=== PATIENT | female | born 1990 | race Caucasian/White ===

== ENCOUNTER 2017-06-24 16:54 | Emergency (ER) | payer BC, OTHER ==
[2017-06-24 17:14] VITALS: BP 114/65; PULSE 80; TEMP 98.2; BMI 29.2
--- NOTE | 2017-06-24 17:14 | PDOC ---
Rapid Medical Evaluation Time Seen by Provider: 06/24/17 17:06 Medical Evaluation: Allergies Allergy/AdvReac Type Severity Reaction Status Date / Time No Known Allergies Allergy Verified 06/24/17 17:09 06/24/17 17:09 I have performed a brief in-person evaluation of this patient. The patient presents with a chief complaint of: , ~7 weeks w/ +IUP on US per pt, f/u Dr To of BOB[facility] DRIER at [facility], sent in for rhogam. Pt states she developed vaginal spotting last week that has since resolved. No abd pain. Was seen in [facility] [place] in [place] 3 days ago and told blood type was O- but refused rhogam as was unhappy with care. Was sent here by her BOB[facility] DRIER per pt Pertinent physical exam findings:Stable w/ unremarkable exam I have ordered the following:T&S The patient will proceed to the ED for further evaluation.
[2017-06-24] MEDS ORDERED: RHO(D) IMMUNE GLOBULIN 1,500 UNIT DISP.SYRIN IM ONE (19:23)
--- NOTE | 2017-06-24 19:28 | PDOC ---
History of Present Illness - General Chief Complaint: ,Possible Stated Complaint: PCP SENT Time Seen by Provider: 06/24/17 17:06 History Source: Patient Exam Limitations: No Limitations - History of Present Illness Initial Comments: 06/24/17 19:28 Patient is a 27-year-old female G2, P1 who presents to emergency department today stating that she needs Rhogam. Patient states that she had some light vaginal spotting approximately 1 week ago. The spotting has since stopped. When she had the spotting she had a transvaginal ultrasound which confirmed an IUP. She was sent over by her AUDIT OFFICER Dr. Gale because she is O- on her type and screen. She has no complaints at this time. Denies vaginal bleeding, abdominal plain, frequency, urgency and hematuria. Past History - Travel Traveled outside of the country in the last 30 days: No Close contact w/someone who was outside of country & ill: No - Past Medical History Allergies/Adverse Reactions: Allergies Allergy/AdvReac Type Severity Reaction Status Date / Time No Known Allergies Allergy Verified 06/24/17 17:09 Home Medications: Ambulatory Orders NK [No Known Home Medication] 06/24/17 COPD: No DVT: No Dementia: No - Immunization History Immunization Up to Date: Yes - Suicide/Smoking/Psychosocial Hx Smoking History: Never smoked Have you smoked in the past 12 months: No Hx Alcohol Use: No Drug/Substance Use Hx: No Substance Use Type: None Review of Systems - Review of Systems Able to Perform ROS?: Yes Comments:: 06/24/17 19:30 CONSTITUTIONAL: Absent: fever, chills, diaphoresis, generalized weakness, malaise, loss of appetite HEENT: Absent: rhinorrhea, nasal congestion, throat pain, throat swelling, difficulty swallowing, mouth swelling, ear pain, eye pain, visual Changes CARDIOVASCULAR: Absent: chest pain, loss of consciousness, palpitations, irregular heart rate, peripheral edema RESPIRATORY: Absent: cough, shortness of breath, dyspnea with exertion, orthopnea, wheezing, stridor, hemoptysis GASTROINTESTINAL: Absent: abdominal pain, abdominal distension, nausea, vomiting, diarrhea, constipation, melena, hematochezia GENITOURINARY: Absent: dysuria, frequency, urgency, hesitancy, hematuria, flank pain, genital pain MUSCULOSKELETAL: Absent: myalgia, arthralgia, joint swelling SKIN: Absent: rash, itching, pallor HEMATOLOGIC/IMMUNOLOGIC: Present: "I need Rhogam" Absent: easy bleeding, easy bruising, lymphadenopathy, frequent infections ENDOCRINE: Absent: unexplained weight gain, unexplained weight loss, heat intolerance, cold intolerance NEUROLOGIC: Absent: headache, focal weakness or paresthesias, dizziness, unsteady gait, seizure, mental status changes, bladder or bowel incontinence PSYCHIATRIC: Absent: anxiety, depression, suicidal or homicidal ideation, hallucinations. Is the patient limited Swedish proficient: No *Physical Exam - Vital Signs Last Vital Signs Temp Pulse Resp BP Pulse Ox 98.2 F 80 15 114/65 100 06/24/17 17:11 06/24/17 17:11 06/24/17 17:11 06/24/17 17:11 06/24/17 17:11 - Physical Exam Comments: 06/24/17 19:31 GENERAL: Well developed, well nourished. Awake and alert. No acute distress. HEENT: Normocephalic, atraumatic. PERRLA, EOMI. No conjunctival pallor. Sclera are non- icteric. Moist mucous membranes. Oropharynx is clear. NECK: Supple. Full ROM. No JVD. Carotid pulses 2+ and symmetric, without bruits. No thyromegaly. No lymphadenopathy. CARDIOVASCULAR: Regular rate and rhythm. No murmurs, rubs, or gallops. Distal pulses are 2+ and symmetric. PULMONARY: No evidence of respiratory distress. Lungs clear to auscultation bilaterally. No wheezing, rales or rhonchi. ABDOMINAL: Soft. Non-tender. Non-distended. No rebound or guarding. No organomegaly. Normoactive bowel sounds. MUSCULOSKELETAL Normal range of motion at all joints. No bony deformities or tenderness. No CVA tenderness. EXTREMITIES: No cyanosis. No clubbing. No edema. No calf tenderness. SKIN: Warm and dry. Normal capillary refill. No rashes. No jaundice. NEUROLOGICAL: Alert, awake, appropriate. Cranial nerves 2-12 intact. No deficits to light touch and temperature in face, upper extremities and lower extremities. No motor deficits in the in face, upper extremities and lower extremities. Normoreflexic in the upper and lower extremities. Normal speech. Toes are down- going bilaterally. Gait is normal without ataxia. PSYCHIATRIC: Cooperative. Good eye contact. Appropriate mood and affect. ED Treatment Course - ADDITIONAL ORDERS Additional order review: Laboratory Results 06/24/17 06/24/17 17:20 17:20 Blood Type O NEGATIVE O NEGATIVE Antibody Screen Negative Negative Medical Decision Making - Medical Decision Making 06/24/17 19:31 Patient is a 27-year-old female G2, P1 approximately 7 weeks who presents emergency department today needing rhogam and after vaginal spotting last week. She has no complaints at this time. States that she has not had any vaginal bleeding since last week. Type and screen shows O- with negative antibodies. We will give rhogam and at this time. Patient given return precautions. Patient understands all discharge instructions and all questions were answered. Patient was informed keep her follow-up for 07/05/[address] Gale. *DC/Admit/Observation/Transfer Diagnosis at time of Disposition: Need for rhogam due to Rh negative mother - Discharge Dispostion Disposition: HOME Condition at time of disposition: Stable Admit: No - Referrals Referrals: Myrna Rucker [Primary Care Provider] - Carolin Gale MD [Staff Physician] - - Patient Instructions Printed Discharge Instructions: DI for Vaginal Bleeding During Additional Instructions: You were given Rhogam today. Please keep your follow-up with her AUDIT OFFICER for . Drink plenty of fluids. Return to the emergency department if you have vaginal bleeding, abdominal pain , worsening nausea and vomiting, weakness, lethargy or have any changes in your symptoms. - Post Discharge Activity Forms/Work/School Notes: Back to Work
== END 2017-06-24 20:26 | disposition home or self-care (01) ==
LOC: JERFT 16:54 → JER 16:54
PROC: 3E0234Z Introduction of Serum, Toxoid and Vaccine into Muscle, Percutaneous Approach (ICD-10-PCS; principal; 2017-06-24)
DX: O36.0110 Maternal care for anti-D [Rh] antibodies, first trimester, not applicable or unspecified (principal); Z3A.01 Less than 8 weeks gestation of pregnancy
CPT/HCPCS: 86850; 86900; 86901; 86999; 99281-25; J1561

== ENCOUNTER 2017-07-13 12:27 | Day surgery (SDC) | payer BC, OTHER ==
[2017-07-12 15:35] VITALS: BMI 29.2
[2017-07-13 13:00] LABS: BASO % 0.5 % (0-2.0); HEMATOCRIT 39.4 % (32.4-45.2); HEMOGLOBIN 13.3 GM/dL (10.7-15.3); LYMPH % 22.8 % (8-40); MCHC 33.8 g/dl (32.0-36.0); MEAN CELL VOLUME 85.8 fl (80-96); MONO % 7.1 % (3.8-10.2); NEUT % 68.6 % (42.8-82.8); PLATELET COUNT 208 K/MM3 (134-434); RBC 4.59 M/mm3 (3.60-5.2); RDW 13.4 % (11.6-15.6)
[2017-07-13] MEDS ORDERED: IBUPROFEN 400 MG TABLET (FP) PO PRN (13:42)
[2017-07-13] MEDS ORDERED: ACETAMINOPHEN 325 MG TABLET (FP) PO PRN (13:42)
[2017-07-13] MEDS ORDERED: oxyCODONE HCL 5 MG TABLET PO PRN (13:42)
--- NOTE | 2017-07-13 13:46 | HP ---
Admitting History and Physical - Admission History of Present Illness: 27 yo @ approximtealy 8 wks by dates found to have missed She is s/p ultrasound that measured her to be 6 wks without FH on two occasions Her ultasound was also significant for a bicornuate v arcuate uterus. She denies complaints, reports no leakage of fluid or vaginal bleeding History Source: Patient Limitations to Obtaining History: No Limitations - Past Medical History Cardiovascular: No: HTN Pulmonary: No: Asthma ...LMP: 05/11/17 ...: Yes (misscarriage) ...: 2 ...Para: 1 - Past Surgical History Past Surgical History: Yes: - Smoking History Smoking history: Never smoked Have you smoked in the past 12 months: No - Alcohol/Substance Use Hx Alcohol Use: No - Social History History of Recent Travel: No Home Medications - Allergies Allergies/Adverse Reactions: Allergies Allergy/AdvReac Type Severity Reaction Status Date / Time No Known Allergies Allergy Verified 07/13/17 13:26 - Home Medications Home Medications: Ambulatory Orders NK [No Known Home Medication] 06/24/17 Family Disease History - Family Disease History Family History: Denies Review of Systems - Review of Systems Constitutional: reports: No Symptoms Cardiovascular: reports: No Symptoms Respiratory: reports: No Symptoms Gastrointestinal: reports: No Symptoms Genitourinary: reports: No Symptoms Musculoskeletal: reports: No Symptoms Endocrine: reports: No Symptoms Hematology/Lymphatic: reports: No Symptoms Physical Examination Vital Signs: Vital Signs Temperature 98.5 F 07/13/17 13:23 Pulse Rate 83 07/13/17 13:23 Respiratory Rate 16 07/13/17 13:23 Blood Pressure 96/59 07/13/17 13:23 O2 Sat by Pulse Oximetry (%) 100 07/13/17 13:25 Constitutional: Yes: Well Nourished, No Distress, Calm Cardiovascular: Yes: Regular Rate and Rhythm Respiratory: Yes: Regular, CTA Bilaterally Gastrointestinal: Yes: Normal Bowel Sounds, Soft Neurological: Yes: Alert, Oriented ...Motor Strength: WNL Psychiatric: Yes: Alert, Oriented Labs: CBC, BMP 07/13/17 12:15 Blood type: O negative, Rh positive, s/p rhogam Assessment/Plan 27 yo MAB 1. Consents reviewed and signed. Reviewed risks including but not limited to infection, bleeding requiring transfusion, uterine perforation, damage to surrounding organs such as bowel and bladder. 2. Plan for ultrasound during provedure 3. Plan for doxycycline and methergine postop 4. SCDs for DVT prophylais 5. Will proceed to OR
[2017-07-13] MEDS ORDERED: PROPOFOL 20 ML ONE ×4 (14:17→14:50)
[2017-07-13] MEDS ORDERED: ceFAZolin SODIUM 1 GM VIAL IVPB ONE (14:21)
[2017-07-13] MEDS ORDERED: ceFAZolin SODIUM 1 GM VIAL ONE (14:24)
[2017-07-13] MEDS ORDERED: KETOROLAC TROMETHAMINE 30 MG/1 ML VIAL ONE (14:37)
[2017-07-13] MEDS ORDERED: ONDANSETRON 4 MG/2 ML VIAL IVPUSH PRN (15:16)
[2017-07-13] MEDS ORDERED: LACTATED RINGERS SOLUTION 1,000 ML IV SCH (15:30)
--- NOTE | 2017-07-13 16:10 | OP ---
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
[2017-07-13 18:32] VITALS: TEMP 97.8
[2017-07-13 18:44] VITALS: BP 110/60; PULSE 86
--- NOTE | 2017-07-14 07:48 | OP ---
DATE OF OPERATION: 07/13/2017 ATTENDING PHYSICIAN RESPONSIBLE TO SIGN REPORT: Carolin Gale MD PREOPERATIVE DIAGNOSIS: Missed . POSTOPERATIVE DIAGNOSIS: Missed . SURGERY: Ultrasound-guided suction dilation and curettage. FINDINGS: Likely bicornuate uterus with in the left horn. No FH noted on ultrasound prior to procedure. Thin endometrial stripe at the end of procedure. SURGEON: Carolin Gale MD ANESTHESIA: General. ANESTHESIOLOGIST: Joseph Ambrocio DO ESTIMATED BLOOD LOSS: 100 mL. INDICATIONS: Patient is a 27-year-old 2, para 1, with history of missed AB diagnosed on ultrasound. She was approximately 9 weeks measuring about 6 weeks on the ultrasound, 7 weeks bedside today. No FH noted. She was counseled regarding medical or surgical management. She opted for surgical procedure. She was counseled regarding risks, benefits, alternatives, and complications of the procedure including infection, bleeding, uterine perforation, damage to surrounding organs such as bowel, bladder. She expressed understanding and was brought to the operating room. DESCRIPTION OF PROCEDURE: When anesthesia was found to be adequate, patient was prepped and draped in a normal sterile fashion, placed in dorsal lithotomy position using Rufino stirrups. A weighted speculum was placed in the posterior portion of the patients vagina. The extensor protractor was placed in the anterior portion of the patients anterior vagina. The anterior lip of the cervix was grasped using a single-tooth tenaculum. The cervix was dilated to accommodate a size 20 Aajy dilator. Ultrasound guidance was performed, and insertion of the cannula deemed to be difficult as it was likely she had a uterine septum. Ultrasound was used to place the cannula into the left uterine horn. Gentle suction was performed. Removal of all products was noted on ultrasound. All instruments were removed from the patients vagina. The patient tolerated the procedure well. Estimated blood loss was 100 mL. Patient was awoken from anesthesia and brought to the recovery room in stable condition. Mikayla [id number] MTDD
--- NOTE | 2017-07-15 15:36 | PATH ---
Surgical Pathology Report Patient Name: RORY LAURA Med. Rec. #: [id number] /Age/Gender: 1990 (Age: 27) / F Account: [id number] Location: [facility] SURGICAL Taken: 07/13/2017 Received: 07/14/2017 Reported: 07/15/2017 Physicians: Carolin Gale Specimen(s) Received PRODUCTS OF CONCEPTION Clinical History Miscarriage Final Diagnosis UTERINE CONTENTS, EVACUATION: CHORIONIC VILLI CONSISTENT WITH PRODUCTS OF CONCEPTION, AND PORTIONS OF DECIDUA. Electronically Signed Jeff Hardy M.D. Gross Description Received in formalin, labeled "products of conception," is a 8 x 5 x 1 cm. aggregate of fortune-red soft tissue fragments. Villous tissue is identified. No somatic tissue is identified. A community health representative portion is submitted in one cassette. LUCITA/07/14/2017 tia/07/14/2017
== END 2017-07-13 18:48 | disposition home or self-care (01) ==
LOC: JASU-SURG 12:27
PROVIDERS: ATTEND Obstetrics & Gynecology
PROC: 10D17ZZ Extraction of Products of Conception, Retained, Via Natural or Artificial Opening (ICD-10-PCS; principal; 2017-07-13 14:00)
DX: O02.1 Missed abortion (principal)
CPT/HCPCS: 36415; 76856-TC; 76998-TC; 85025; 86850; 86870; 86900; 86901; 86902; 88305-TC; 94760

== ENCOUNTER 2019-01-04 16:00 | Inpatient (IN) | payer BC, OTHER ==
[2019-01-04] MEDS ORDERED: CITRIC ACID/SODIUM CITRATE 30 ML UNIT-DOSE CUP PO ONE (16:45)
[2019-01-04] MEDS ORDERED: ELECTROLYTE-148 SOLN 1,000 ML IV ONE (16:45)
[2019-01-04] MEDS ORDERED: ELECTROLYTE-148 SOLN 1,000 ML IV SCH ×2 (17:45→19:30)
[2019-01-04 18:05] VITALS: BMI 32.5
[2019-01-04] MEDS ORDERED: ONDANSETRON 4 MG/2 ML VIAL IVPUSH PRN (18:56)
[2019-01-04] MEDS ORDERED: KETOROLAC TROMETHAMINE 30 MG/1 ML VIAL ONE ×2 (19:05→19:11)
[2019-01-04] MEDS ORDERED: ceFAZolin SODIUM 1 GM VIAL ONE (19:13)
[2019-01-04] MEDS ORDERED: OXYTOCIN 10 UNITS/ML VIAL ONE (19:16)
[2019-01-04] MEDS ORDERED: OXYTOCIN 20 UNITS in 0.9% NS 20 UNIT/1,000 ML INFUS.BAG IV ONE ×2 (19:31→22:12)
[2019-01-04] MEDS ORDERED: ePHEDrine SULFATE 50 MG/1 ML AMPULE ONE (19:34)
[2019-01-04] MEDS ORDERED: PHENYLEPHRINE HCL 10 MG/1 ML SINGLE DOSE VIAL ONE (19:34)
--- NOTE | 2019-01-04 19:34 | HP ---
Past Medical History - Primary Care Physician PCP:: Yao Martinez - Admission Chief Complaint: 28yo P1 with at EGA 37w0d admitted for repeat C/S due to IUGR. History of Present Illness: care complicated by suspected IUGR. Bicornuate uterus Rh negative Prior C/S History Source: Patient, Medical Record Limitations to Obtaining History: No Limitations - Past Medical History SECURITY ASSURANCE SPECIALIST: No: Alzheimer's, CVA, Dementia, Migraine, Multiple Sclerosis, Peripheral Neuropathy, Parkinson's, Seizure, Syncope, TIA, Vertigo, Other Cardiovascular: No: AFIB, Aneurysm, Aortic Insufficiency, Aortic Stenosis, CAD, CHF, Deep Vein Thrombosis, HTN, Hyperlipdemia, AR, Mitral Insufficiency, Mitral Stenosis, Murmur, Pulmonary Hypertension, Other Pulmonary: No: Asthma, Bronchitis, Cancer, COPD, O2 Dependent, Pneumonia, Previously Intubated, Pulmonary Embolus, Pulmonary Fibrosis, Sleep Apnea, Other Gastrointestinal: No: Ascites, Cancer, Constipation, Crohn's Disease, Diverticulitis, Diverticulosis, Esophageal Varices, Gastritis, GERD, GI Bleed, Hemorrhoids, Hiatal Hernia, Inflamatory Bowel Disease, Irritable Bowel Disease, Pancreatitis, Peptic Ulcer Disease, Ulcerative Colitis, Other Hepatobiliary: No: Cirrhosis, Cholelithiasis, Cholecystitis, Choledocholithiasis , Hepatitis A, Hepatitis B, Hepatitis C, Other Renal/: No: Renal Failure, Renal Inusuff, BPH, Cancer, Hematuria, Hemodialysis , Neurogenic Bladder, Renal Calculi, UTI, Other Reproductive: No: Ectopic , Endometriosis, Fibroids, PID, Polycystic Ovary Syndrome, Postmenopausal, Other ...: 3 ...Para: 1 ...Term: 1 ...: 0 ...Spon : 1 ...Induced : 0 ...Multiple Gestation: 0 ...LMP: 04/20/18 ... Weeks Gestation by Dates: 37.0 (C/S x 1) ...EDC by Dates: 01/25/19 Heme/Onc: No: Anemia, B12 Deficiency, Bleeding Disorder, Cancer, Current Chemotherapy, Current Radiation Therapy, Hemochromatosis, Hypercoaguable State, Myeloproliferative Synd, Sickle Cell Disease, Sickle Cell Trait, Thrombocytopenia, Other Infectious Disease: No: AIDS, C-Diff, Herpes Zoster, HIV, MRSA, STD's, Tuberculosis, VREF, Other Psych: No: Addictions, Anxiety, Bipolar, Depression, Panic, Psychosis, Schizophrenia, Other Musculoskeletal: No: Bursitis, Chronic low back pain, Hemiparesis, Hemiplegia, Osteoarthritis, Paraplegia, Other Rheumatology: No: Fibromyalgia, Gout, Lupus, Rheumatoid Arthritis, Sarcoidosis, Vasculitis, Other ENT: No: Allergic Rhinitis, Sinusitis, Other Endocrine: No: Reeves's Disease, [place]'s Disease, Diabetes Insipidus, Diabetes Mellitus, Hyperparathyroidism, Hyperthyroidism, Hypothyroidism, Osteopenia, SIADH, Other Dermatology: No: Basal Cell, Cellulitis, Eczema, Melanoma, Psoriasis, Squamous Cell, Other - Past Surgical History Past Surgical History: Yes: Hx Myomectomy: No Hx Transabdominal Cerclage: No - Smoking History Smoking history: Never smoked Have you smoked in the past 12 months: No - Alcohol/Substance Use Hx Alcohol Use: No History of Substance Use: reports: None - Social History Usual Living Arrangement: Yes: With Spouse, With Child ADL: Independent History of Recent Travel: No Home Medications - Allergies Allergies/Adverse Reactions: Allergies Allergy/AdvReac Type Severity Reaction Status Date / Time No Known Allergies Allergy Verified 01/04/19 18:31 - Home Medications Home Medications: Ambulatory Orders Vit No.129/Iron/Folic [ One Daily Tablet] 1 each PO DAILY 10/09 Family Medical History Family History: Unremarkable Review of Systems - Review of Systems Constitutional: reports: No Symptoms Eyes: reports: No Symptoms HENT: reports: No Symptoms Neck: reports: No Symptoms Cardiovascular: reports: No Symptoms Respiratory: reports: No Symptoms Gastrointestinal: reports: No Symptoms Genitourinary: reports: No Symptoms Breasts: reports: No Symptoms Reported Musculoskeletal: reports: No Symptoms Integumentary: reports: No Symptoms Neurological: reports: No Symptoms Endocrine: reports: No Symptoms Hematology/Lymphatic: reports: No Symptoms Psychiatric: reports: No Symptoms Pain Intensity: 0 Physical Exam - Maternity Vital Signs: Vital Signs Temperature 99.0 F 01/04/19 17:15 Pulse Rate 99 H 01/04/19 17:15 Respiratory Rate 18 01/04/19 17:15 Blood Pressure 107/63 01/04/19 17:15 O2 Sat by Pulse Oximetry (%) Constitutional: Yes: Well Nourished, No Distress, Calm Eyes: Yes: WNL, Conjunctiva Clear HENT: Yes: WNL, Atraumatic, Normocephalic Neck: Yes: WNL, Supple, Trachea Midline Cardiovascular: Yes: WNL, Regular Rate and Rhythm Lungs: Clear to auscultation, Normal air movement - Abdominal Exam/OB Fundal Height: 37 Number of Fetuses: Single Presentation: Vertex Contractions: No Heart Rate (range): 130 Heart Rate Location: Midline Category: I Accelerations: Non-Uniform Decelerations: None - Vaginal Exam/OB Vaginal Bleediing: No Speculum Exam: No Amniotic Membrane Status: Intact Presentation: Vertex/Position Station: -4 - Physical Exam Musculoskeletal: Yes: WNL Extremities: Yes: WNL Edema: No Integumentary: Yes: WNL Deep Tendon Reflex Grade: Normal +2 ...Motor Strength: WNL Psychiatric: Yes: WNL, Alert, Oriented Hemorrhage Risk Assessment - Risk Factors Medium Risk Factors: Yes: Prior , uterine surgery,or multiple laparotomies High Risk Factors: Yes: None Risk Score: 1 Risk Level: Medium Risk Imaging - Results Ultrasound: Report Reviewed Assessment/Plan 28yo P1 with at EGA 37w0d admitted for repeat C/S due to IUGR. We discussed the risks and benefits of C/S at length, including but not limited to scarring, pain, bleeding, infection, injury to underlying organs and structures, need for additional surgery to repair/treat any problems or complications, complications/injuries, etc. The pt verbalized her understanding and requested to proceed with surgery. The pt is aware that all surgeries have risks and no guarantees can be provided.
[2019-01-04] MEDS ORDERED: SENNOSIDES/DOCUSATE COMBO (SENNA PLUS) TABLET (UD) PO PRN (20:55)
[2019-01-04] MEDS ORDERED: BENZOCAINE 28 GM HEMORRHOIDAL OINTMENT TP PRN (20:55)
[2019-01-04] MEDS ORDERED: METHYLERGONOVINE MALEATE 0.2 MG/1 ML AMP IM PRN (20:55)
[2019-01-04] MEDS ORDERED: WITCH HAZEL 50% (TUCKS) 40 PAD/JAR PAD TP PRN (20:55)
[2019-01-04] MEDS ORDERED: BENZOCAINE 20% 57 GM BOTTLE TP PRN (20:55)
[2019-01-04] MEDS ORDERED: OXYTOCIN 20 UNITS in 0.9% NS 20 UNIT/1,000 ML INFUS.BAG IV SCH (21:00)
--- NOTE | 2019-01-04 21:01 | OP ---
Operative Note - Note: Operative Date: 01/04/19 Pre-Operative Diagnosis: at 37w0d with IUGR fetus. Prior C/S. Bicornuate uterus Operation: Repeat LT C/S Findings: Live baby girl in vts presentation. No meconium in amniotic fluid. Nuchal cord x 1. Bicornuate uterus. 9-9. Wt 5lb 5oz.. Post-Operative Diagnosis: Same as Pre-op Surgeon: Yao Martinez Development Technologist: Diego Black Anesthesiologist/INTERNATIONAL SOURCING MANAGER: Gen Jacinto Anesthesia: Spinal Specimens Removed: Placenta Estimated Blood Loss (mls): 500 Drains & Tubes with Location: Sims cath Drains, Volume Out (mls): 100 Blood Volume Replaced (mls): 0 Fluid Volume Replaced (mls): 2,000 Operative Report Dictated: Yes
--- NOTE | 2019-01-04 23:16 | OP ---
DATE OF OPERATION: 01/04/2019 DATE OF DICTATION: 01/04/2019 PREOPERATIVE DIAGNOSIS: with estimated gestational age of 37 weeks and 0 days. Intrauterine growth restriction fetus. Previous section. Bicornuate uterus. POSTOPERATIVE DIAGNOSIS: with estimated gestational age of 37 weeks and 0 days. Intrauterine growth restriction fetus. Previous section. Bicornuate uterus. Delivered. PROCEDURE: Repeat low transverse section via Pfannenstiel skin incision. SURGEON: London Martinez M.D. LINE ASSEMBLY UTILITY WORKER: Diego Black M.D. ANESTHESIOLOGIST: Gen Jacinto M.D. ANESTHESIA: Spinal. COMPLICATIONS: None. ESTIMATED BLOOD LOSS: 500 mL. URINE OUTPUT: 100 mL of clear urine at the end of the procedure. INTRAVENOUS FLUIDS: 200 mL FINDINGS: Live baby girl in vertex presentation, no meconium in amniotic fluids. A nuchal cord was noted to be wrapped around once and released without difficulty. Apgars 9 and 9. Baby's weight, 5 pounds 5 ounces. Bicornuate uterus was noted with the baby in the right uterine horn. Normal ovaries, fallopian tubes were noted. PROCEDURE: The patient was met preoperatively. Risks, benefits, and alternatives of surgery were discussed in detail. All questions were answered. The patient verbalized understanding and she requested to proceed with the surgery. The patient was brought to the OR with the IV running. She was placed on the surgical table in a sitting position. The spinal anesthesia was achieved without difficulty. The patient was then placed in the supine position with leftward tilt. She was prepped and draped in the usual sterile fashion. A Sims catheter was left to drain to gravity. A timeout procedure was conducted as per protocol. The surgeon then proceeded with the operation. A Pfannenstiel skin incision was made with the knife along the prior scar. The incision was taken down to the level of the fascia. The fascia was incised in the midline. The incision was extended bilaterally using Flynn scissors. The fascia was then dissected away from the rectus muscles superiorly and inferiorly using sharp dissection. The rectus muscles were in the midline using sharp dissection. The peritoneum was identified and entered sharply. The peritoneal incision was extended superiorly and inferiorly. Some dense adhesions were noted on the right side between the lower uterine segment up to the round ligament. Those adhesions were carefully dissected. The bladder peritoneum was dissected away from the lower uterine segment. The bladder was dissected sharply. The bladder was then reflected downwards using a [place] retractor. The uterus was incised transversely in the lower uterine segment. The incision was extended bilaterally using bandage scissors. The amniotic fluid was ruptured and noted to be cleared. The baby was then delivered from vertex presentation without complications. The nuchal cord was noted to be wrapped around once and was released without difficulty. The baby was delivered and began crying spontaneously. The umbilical cord was clamped and cut. The baby was handed to the waiting glaze mixer. The placenta was then delivered manually and without complications. The uterus was cleared of all clots and debris using laparotomy laps. The uterus was then exteriorized, and it was noted to be well contracted. The uterine incision was repaired using a 0 Biosyn suture with the running locking stitch. The uterine incision was then imbricated using a 0 Biosyn suture with good hemostasis and approximation. The uterus was replaced into the abdominal cavity. Once again good hemostasis was noted. The operative site was irrigated using copious amounts of normal saline. Once the saline was aspirated, good hemostasis was confirmed. The parietal peritoneum was then reapproximated using a 2-0 chromic suture. The rectus muscles were approximated in the midline using several 2-0 chromic suture. The fascia was closed using a 0 Vicryl suture with good hemostasis at the approximation. The Aubrey fascia was also approximated using several interrupted 0 Vicryl sutures. The skin was closed using a 4-0 Biosyn suture using subcutaneous stitch with good hemostasis and approximation. Sponge, lap, and needle counts were correct. Patient was transferred to recovery room in stable condition and awake. LONDON MARTINEZ M.D. [id number]
[2019-01-05] MEDS: IBUPROFEN 800 MG/8 ML IJ IVPB PRN ×2 (06:19→14:23)
--- NOTE | 2019-01-05 06:43 | PN ---
Progress Note (short form) - Note Progress Note: pod 1 has mild low abdominal cramps, no excess vaginal bleeding Last Vital Signs Temp Pulse Resp BP Pulse Ox 98.3 F 79 18 102/50 L 01/05/19 06:00 01/05/19 06:00 01/05/19 06:00 01/05/19 06:00 abdomen soft, no distension, no cva uterus firm incision dry, clean no calf tenderness plan ambulate , cbc , advance diet
[2019-01-05 08:19] LABS: BASO % 0.2 % (0-2.0); EOS % 0.9 % (0-4.5); HEMOGLOBIN 9.1 GM/dL (10.7-15.3); LYMPH % 11.7 % (8-40); MCH 27.7 pg (25.7-33.7); MCHC 33.8 g/dl (32.0-36.0); MEAN CELL VOLUME 81.9 fl (80-96); MONO % 5.9 % (3.8-10.2); NEUT % 81.3 % (42.8-82.8); PLATELET COUNT 180 K/MM3 (134-434); RDW 15.4 % (11.6-15.6); WHITE BLOOD COUNT 7.2 K/mm3 (4.0-10.0)
[2019-01-05] MEDS: ENOXAPARIN NA (PORCINE) 40 MG/0.4 ML DISP.SYRIN SQ SCH (10:14)
[2019-01-05] MEDS: PRENATAL VITAMINS W/ FOLIC ACID TABLET (FP) PO SCH (10:22)
--- NOTE | 2019-01-05 14:49 | PN ---
Progress Note (short form) - Note Progress Note: Anesthesia POD#1 S/P under spinal and duramorph VSS,no N/V,mild pain,legs strong. Verito Yun MD.
[2019-01-05] MEDS: ACETAMINOPHEN 325 MG TABLET (FP) PO PRN (22:20)
[2019-01-05] MEDS: IBUPROFEN 600 MG TABLET (FP) PO PRN (22:21)
[2019-01-05] MEDS: SIMETHICONE 80 MG TAB.CHEW (FP) PO PRN (22:22)
--- NOTE | 2019-01-06 07:28 | PN ---
Post Progress Note - Subjective Subjective: Patient without acute complaints. Reports tolerating oral intake without nausea or vomiting. Ambulating without dizziness. Denies fevers or chills. Pain well controlled with oral pain medication. without difficulty. Passing flatus. Post Day: 2 Type of Delivery: Repeat C/S Vital Signs: Vital Signs Temperature 98.7 F 01/06/19 02:42 Pulse Rate 81 01/06/19 02:42 Respiratory Rate 20 01/06/19 02:42 Blood Pressure 97/51 L 01/06/19 02:42 O2 Sat by Pulse Oximetry (%) Breast Exam: Yes: Soft Uterus: Yes: Fundus Firm Incision: Yes: [place] [employer] intact Abdomen/GI: Yes: Abdomen soft Lochia: Yes: Rubra Lochia, amount: Small Extremities: Yes: Calves non-tender Perineum: Yes: Intact Activity: Ambulating - Labs Labs: CBC WBC 7.2 K/mm3 (4.0-10.0) 01/05/19 07:15 RBC 3.30 M/mm3 (3.60-5.2) L 01/05/19 07:15 Hgb 9.1 GM/dL (10.7-15.3) L 01/05/19 07:15 Hct 27.0 % (32.4-45.2) L 01/05/19 07:15 MCV 81.9 fl (80-96) 01/05/19 07:15 MCH 27.7 pg (25.7-33.7) 01/05/19 07:15 MCHC 33.8 g/dl (32.0-36.0) 01/05/19 07:15 RDW 15.4 % (11.6-15.6) 01/05/19 07:15 Plt Count 180 K/MM3 (134-434) 01/05/19 07:15 MPV 8.0 fl (7.5-11.1) 01/05/19 07:15 Absolute Neuts (auto) 5.8 K/mm3 (1.5-8.0) 01/05/19 07:15 Neutrophils % 81.3 % (42.8-82.8) 01/05/19 07:15 Lymphocytes % 11.7 % (8-40) D 01/05/19 07:15 Monocytes % 5.9 % (3.8-10.2) 01/05/19 07:15 Eosinophils % 0.9 % (0-4.5) 01/05/19 07:15 Basophils % 0.2 % (0-2.0) 01/05/19 07:15 Nucleated RBC % 0 % (0-0) 01/05/19 07:15 Assessment/Plan POD#2 VSS, Afebrile Doing well for RhoGam cont. routine care Encourage ambulation
[2019-01-06] MEDS: ACETAMINOPHEN 325 MG TABLET (FP) PO PRN ×2 (07:38→14:05)
[2019-01-06] MEDS: SIMETHICONE 80 MG TAB.CHEW (FP) PO PRN ×3 (07:39→17:28)
[2019-01-06] MEDS: IBUPROFEN 600 MG TABLET (FP) PO PRN ×3 (07:39→17:28)
[2019-01-06] MEDS: PRENATAL VITAMINS W/ FOLIC ACID TABLET (FP) PO SCH (09:24)
[2019-01-06] MEDS: ENOXAPARIN NA (PORCINE) 40 MG/0.4 ML DISP.SYRIN SQ SCH (09:25)
[2019-01-06] MEDS: BISACODYL 10 MG SUPP.RECT RC PRN (15:49)
[2019-01-06] MEDS: oxyCODONE HCL 5 MG TABLET PO PRN (17:29)
[2019-01-07] MEDS: SIMETHICONE 80 MG TAB.CHEW (FP) PO PRN ×3 (00:34→13:46)
[2019-01-07] MEDS: IBUPROFEN 600 MG TABLET (FP) PO PRN ×3 (00:34→13:44)
[2019-01-07] MEDS: oxyCODONE HCL 5 MG TABLET PO PRN (00:35)
[2019-01-07 07:33] LABS: BASO % 0.5 % (0-2.0); EOS % 2.1 % (0-4.5); HEMATOCRIT 27.5 % (32.4-45.2); HEMOGLOBIN 9.2 GM/dL (10.7-15.3); LYMPH % 21.6 % (8-40); MCH 27.5 pg (25.7-33.7); MCHC 33.3 g/dl (32.0-36.0); MEAN CELL VOLUME 82.4 fl (80-96); MEAN PLT VOLUME 7.8 fl (7.5-11.1); MONO % 7.3 % (3.8-10.2); NEUT % 68.5 % (42.8-82.8); PLATELET COUNT 197 K/MM3 (134-434); RBC 3.33 M/mm3 (3.60-5.2); RDW 15.5 % (11.6-15.6); WHITE BLOOD COUNT 6.3 K/mm3 (4.0-10.0)
[2019-01-07] MEDS: ACETAMINOPHEN 325 MG TABLET (FP) PO PRN ×2 (08:00→13:45)
[2019-01-07] MEDS: PRENATAL VITAMINS W/ FOLIC ACID TABLET (FP) PO SCH (09:30)
[2019-01-07] MEDS: ENOXAPARIN NA (PORCINE) 40 MG/0.4 ML DISP.SYRIN SQ SCH (09:31)
[2019-01-07 10:26] LABS: ANISOCYTOSIS 0; HELMET CELLS 0; HOWELL-JOLLY BODIES 0; MACROCYTOSIS 0; OVALOCYTE 0; PLATELET ESTIMATE NORMAL; ROULEAU 0; SICKELED CELLS 0; TARGET CELLS 0; TEAR DROP CELLS 0; TOXIC GRANULATION 0
[2019-01-07 11:37] VITALS: BP 101/59; PULSE 76; TEMP 97.9
--- NOTE | 2019-01-07 13:12 | DS ---
Physical Exam-FISHER WEIR Vital Signs: Vital Signs Temperature 97.9 F 01/07/19 07:50 Pulse Rate 76 01/07/19 07:50 Respiratory Rate 18 01/07/19 07:50 Blood Pressure 101/59 L 01/07/19 07:50 O2 Sat by Pulse Oximetry (%) Constitutional: Yes: Well Nourished, No Distress, Calm Eyes: Yes: WNL, Conjunctiva Clear, EOM Intact HENT: Yes: WNL, Atraumatic, Normocephalic Neck: Yes: WNL, Supple, Trachea Midline Cardiovascular: Yes: WNL, Regular Rate and Rhythm Respiratory: Yes: WNL, Regular, CTA Bilaterally Gastrointestinal: Yes: WNL, Normal Bowel Sounds, Soft External Genitalia: Yes: Normal Vaginal Exam: Yes: Normal ....Post : Yes: Uterus firm, Uterus non-tender Breast(s): Yes: WNL Musculoskeletal: Yes: WNL Extremities: Yes: WNL Edema: No Integumentary: Yes: WNL Wound/Incision: Yes: Clean/Dry, Well Approximated Neurological: Yes: WNL, Alert, Oriented ...Motor Strength: WNL Psychiatric: Yes: WNL, Alert, Oriented Labs: CBC, BMP 01/07/19 06:30 Delivery - Delivery Type of Anesthesia: Epidural Episiotomy/Laceration: None EBL (cc): 500 Delivery, Single - Stages of Labor Date of Delivery: 01/04/19 Time of Delivery: 19:58 Time Placenta Delivered: 19:59 - Condition of Infant 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 You may walk unlimited malena of and climb stairs. You may resume driving the car when you feel safe and comfortable behind the wheel. No sexual activity as instructed. Wound care If you have a bandage, leave it on, and keep dry for 48-72 hours. After that time discard the outer bandage. If they are tapes on the skin under the out of bandage leave them in place. They will peel off in the next 7 to 10 days. Do Not Peel them off. You may shower the day after surgery. If there are tapes present on the skin, you may shower over them. Diet There are no dietary restrictions. Eat healthy, high-fiber foods. Drink 6 to 8 glasses of liquid each day. This will assist in keeping your bowels are regular. Pain management You may take Tylenol or acetaminophen or Ibuprofen (for example, Motrin, Advil etc.) from my pain prescription medication is ordered should be taken as prescribed for moderate to severe pain. Call MD for any of the following: Severe pain not relieved by medication Fever of 101 or higher Excessive bleeding or drainage on dressing Inability to urinate Referrals: Yao Martinez MD [Staff Physician] - Disposition: HOME - Home Medications Comprehensive Discharge Medication List: Ambulatory Orders Vit No.129/Iron/Folic [ One Daily Tablet] 1 each PO DAILY 10/09
[2019-01-07] MEDS: BISACODYL 10 MG SUPP.RECT RC PRN (13:46)
--- NOTE | 2019-01-10 17:32 | PATH ---
Surgical Pathology Report Patient Name: RORY LAURA Med. Rec. #: [id number] /Age/Gender: 1990 (Age: 28) / F Account: [id number] Location: [facility] OBS/SOFTWARE ENGINEER KERNEL Taken: 01/04/2019 Received: 01/05/2019 Reported: 01/10/2019 Physicians: Yao Martinez M.D. Specimen(s) Received PLACENTA Clinical History 37 weeks, IUGR, low lying placenta, RH negative. x1 Final Diagnosis PLACENTA: THIRD TRIMESTER PLACENTA. TRIVASCULAR CORD. MEMBRANES WITH NO DIAGNOSTIC ABNORMALITIES. Electronically Signed Mindi Philip M.D. Gross Description The specimen is received fresh labeled placenta and is a 595 gram, 20 x18 x 3.1cm. placenta with attached membranes and umbilical cord. The attached membranes are glistening, translucent, and insert marginally. The umbilical cord measures 16 cm. in length and averages 1.5 cm. in diameter. The cord inserts eccentrically, 2.5 centimeter to the nearest margin. No true knots or strictures are identified. Cut surface of the umbilical cord reveals 3 vessels. Sectioning reveals red-brown, spongy parenchyma. No lesions are identified. [employer] sections are submitted in three cassettes as follows: 1- membrane rolls and umbilical cord; 2-3- full thickness sections of placenta KWS/01/08/2019 geraldoki/01/08/2019
== END 2019-01-07 15:45 | disposition home or self-care (01) | DRG 788 ==
LOC: JERBED 16:45 → JLDR 17:13 → J3N 22:10 → J3W 01-05 15:00
PROVIDERS: ADMIT Obstetrics & Gynecology; ATTEND Obstetrics & Gynecology
PROC: 10D00Z1 Extraction of Products of Conception, Low, Open Approach (ICD-10-PCS; principal; 2019-01-04)
DX: O36.5930 Maternal care for other known or suspected poor fetal growth, third trimester, not applicable or unspecified (principal); O34.219 Maternal care for unspecified type scar from previous cesarean delivery; O34.03 Maternal care for unspecified congenital malformation of uterus, third trimester; Q51.3 Bicornate uterus; Z3A.37 37 weeks gestation of pregnancy; Z37.0 Single live birth
CPT/HCPCS: 36415; 36600; 82803; 85025; 85461; 86999; 88307-TC